=== PATIENT | male | born 1990 | race African-American/Black ===

== ENCOUNTER 2018-01-20 18:39 | Emergency (ER) | payer MEDICAID, OTHER ==
[~2018-01-20] VITALS: Ht 177.8 cm; Wt 68.0 kg
[2018-01-20 18:43] VITALS: BP 133/87
[2018-01-20] MEDS ORDERED: LORazepam 2MG/ML-1ML VIAL IV ONE (21:45)
[2018-01-20] MEDS ORDERED: LIDOCAINE 1% (LOCAL ANESTH.) PF 5ml SDV ONE ×3 (21:46→23:50)
[2018-01-20] MEDS ORDERED: BACITRACIN TOP OINT 1 UD PKG TOP ONE (22:00)
[2018-01-20] MEDS ORDERED: LIDOCAINE 1% (LOCAL ANESTH.) PF 5ml SDV IJ ONE (22:00)
[2018-01-20] MEDS ORDERED: LIDOCAINE W/ EPINEPHRINE 1% 20ML VIAL SC ONE (22:00)
[2018-01-20] MEDS ORDERED: cefTRIAXone SOD 1,000 MG VL IM ONE (23:15)
[2018-01-20] MEDS ORDERED: TETANUS-DIPTH-ACEL PERTUSSIS 0.5ML SYRG IM ONE (23:15)
== END 2018-01-21 00:05 | disposition home or self-care (01) ==
LOC: ER 18:43
DX: S31.010A Laceration without foreign body of lower back and pelvis without penetration into retroperitoneum, initial encounter (principal); S61.512A Laceration without foreign body of left wrist, initial encounter; S61.511A Laceration without foreign body of right wrist, initial encounter; S51.012A Laceration without foreign body of left elbow, initial encounter; S51.011A Laceration without foreign body of right elbow, initial encounter; S41.012A Laceration without foreign body of left shoulder, initial encounter; S41.011A Laceration without foreign body of right shoulder, initial encounter; W25.XXXA Contact with sharp glass, initial encounter; Y93.39 Activity, other involving climbing, rappelling and jumping off; Y92.89 Other specified places as the place of occurrence of the external cause; Y99.8 Other external cause status
CPT/HCPCS: 12007; 71045; 90471; 90715; 96372; 96374; 99284; J0696; J2060